=== PATIENT | female | born 1980 | race Caucasian/White ===

== ENCOUNTER 2024-10-31 02:10 | Day surgery (SDC) | payer OTHER, SELFPAY ==
[2024-10-18 16:16] VITALS: BMI 24.7
--- NOTE | 2024-10-18 16:39 | PC.NURSE ---
Report to the Outpatient Waiting Room, entrance under the green pavilion located off [facility], at 1000 on 10-31-24. Planned Procedure Time: 1200.? Time changes happen often and if your time is changed the preop area will call you the afternoon before. - You and your visitor will be asked to self-screen and do not enter if you have any COVID symptoms. Please call surgeon if you need to reschedule. - A mask is optional within the hospital at this time. Patients may have clear liquids (water, carbonated beverages, clear teas, apple juice) until 3 hours prior to surgery with a maximum of 20 ounces. 0900 - No food from midnight until time of surgery and no smoking. This includes no chewing gum, candy or mints. - Infants may have breast milk until 4 hours before surgery, infant formula 6 hours prior to surgery. - Children will be allowed to drink immediately following surgery.? If applicable, please bring a bottle or sippy cup to assist with drinking. Juice, water, soda, and popsicles are readily available.? For infants on formula, please bring formula the day of surgery.?Pacifiers are allowed. Take only the following medications with a SIP of water on the morning of surgery: NONE DO NOT STOP ANY OF YOUR OTHER PRESCRIPTION MEDICATIONS PRIOR TO SURGERY EXCEPT THE FOLLOWING Medications to discontinue per physician: N/A Please no make-up, nail japanese, hairspray, perfume, deodorant, or body powder the day of surgery.? No jewelry (including any body piercings) or valuables the day of surgery, leave them at home.? Please take a shower or bath the night before, or the morning of, surgery with an antibacterial soap.? Wear comfortable, loose fitting clothing.? Children are encouraged to wear pajamas. - Jewelry must be removed prior to entering the operating room.? Rings and piercings that are not removed may be cut off. - The hospital will not accept responsibility for valuables.? - Please leave all valuables, including medications, at home the day of surgery. If you are going home after surgery, a licensed subway train driver must drive you home.? - NO public transportation without another adult if you receive anesthesia. - We recommend that an adult stay with you for 24 hours following discharge. - We also recommend that you do not drive, make important decision, drink alcoholic beverages, or take any drugs that were not prescribed by your health care provider for at least 24 hours after your discharge time. For Pediatric surgeries, we recommend two adults accompany the child home. Follow any additional instructions given to you from your surgeon. Telephone instructions given to Tina Gallego and asked if any additional questions and then verbalized understanding. Patient advised to call surgeon office or pre surgery nurse liaison [phone] if any additional questions.
--- NOTE | 2024-10-30 07:48 | PM.IMHP ---
H&P: HPI History of Present Illness Date/Time: 10/30/24 07:48 Chief Complaint: excessive bleeding Narrative: 43-year-old female admitted for hysteroscopy dilatation curettage and Ethel ablation. She has excessive heavy bleeding this was been refractory to medical therapy risks and benefits reviewed including not exclusive of , aspiration bleeding, transfusion, perforation injury to bowel, bladder, ureters, or other internal organs with need for open laparotomy. She received the ACOG handouts entitled hysteroscopy and dilatation curettage respectively. She received the Ethel handout. She had all questions answered. She asked to proceed. [facility] Social History Social History Smoking status: Never smoker Second hand tobacco smoke exposure: No Alcohol intake: never Substance use: never Substance use type: does not use Living arrangements: with family Spiritual care concerns: No Meds Home Medications and Allergies Home Medications Medication Instructions Recorded Confirmed Type No Home Medications 10/18/24 10/18/24 History Allergies Allergy/AdvReac Type Severity Reaction Status Date / Time Cephalosporins Allergy Mild Nausea and Verified 10/18/24 16:14 Vomiting Exam Const: General: cooperative, healthy appearing and comfortable Nutritional Appearance: average body habitus Orientation/consciousness: oriented to person, oriented to place and oriented to time HENMT: Head: normal to inspection Resp: Effort & Inspection: normal respiratory effort Cardio: Rate: regular rate Rhythm: regular rhythm Heart sounds: S1 normal heart sound present and S2 normal heart sound present GI: Inspection: normal to inspection : External Female Exam: normal external appearance Speculum Exam - Vagina: normal appearance of the vagina Speculum Exam - Cervix: normal appearance of the cervix Bimanual exam- vagina & uterus: enlarged Bimanual Exam- Adnexa, other: normal adnexae Assessment and Plan Assessment and plan (1) Excessive bleeding: Code(s): R58 - Hemorrhage, not elsewhere classified Status: Acute Assessment and Plan: proceed with hysteroscopy / dilatation curettage/Ethel ablation
--- NOTE | 2024-10-30 16:07 | P.PNAN_ITS ---
Anes - Eval Pre Procedure Procedure: Operation Date: 10/31/24 09:30 Proposed Procedures p Hysteroscopy Dilation and Curettage, Ethel Endometrial Ablation - Zeb Watkins MD Date/Time: 10/30/24 16:07 Pre Op Diagnosis: Irrg Bleeding, Pain Patient Data Age: 43 Gender: F Height: 1.57 m Weight: 61.24 kg Allergies Allergy/AdvReac Type Severity Reaction Status Date / Time Cephalosporins Allergy Mild Nausea and Verified 10/18/24 16:14 Vomiting Home Medications Medication Instructions Recorded Confirmed Type No Home Medications 10/18/24 10/18/24 History Patient hx anesthesia problems: none Family hx anesthesia problems: none Results Review: All pre-operative results and documents have been reviewed as part of the pre- operative evaluation. [facility] Social History Social History Smoking status: Never smoker Second hand tobacco smoke exposure: No Alcohol intake: never Substance use: never Substance use type: does not use Living arrangements: with family Spiritual care concerns: No Exam Day of Procedure 10/30/24 16:07 Patient weight: normal
--- NOTE | 2024-10-31 06:28 | WPDHPUPDATE1 ---
History and Physical Update Update Date/Time: 10/31/24 06:28 History and Physical has been reviewed, including an updated exam of the patient. There are NO changes in the patient's condition. Risks, benefits, and alternatives have been discussed and questions answered. Patient agrees to proceed with procedure.
[2024-10-31 08:00] VITALS: BP 115/77; PULSE 84; RESP 16; TEMP 36.9; O2SAT 100; BMI 23.9
[2024-10-31] MEDS: LACTATED RINGERS 1,000 ML 30 ML IV CONT (08:00)
[2024-10-31] MEDS: ACETAMINOPHEN 500 MG TABLET 1000 MG PO (08:35)
--- NOTE | 2024-10-31 08:40 | P.PNAN_ITS ---
Anes - Initial Pre Proc Eval Procedure: Operation Date: 10/31/24 09:30 Proposed Procedures p Hysteroscopy Dilation and Curettage, Ethel Endometrial Ablation - Zeb Watkins MD Date/Time: 10/31/24 08:40 Surgeon: Zeb Watkins MD Pre Op Diagnosis: Irrg Bleeding, Pain Patient Data Age: 43 Gender: F Height: 1.57 m Weight: 61.24 kg Allergies Allergy/AdvReac Type Severity Reaction Status Date / Time Cephalosporins Allergy Mild Nausea and Verified 10/18/24 16:14 Vomiting Home Medications Medication Instructions Recorded Confirmed Type hydrocodone 5 mg-acetaminophen 325 1 tablet PO Q4H PRN pain #20 tabs 10/31/24 Rx mg tablet Patient hx anesthesia problems: none Family hx anesthesia problems: none Results Review: All pre-operative results and documents have been reviewed as part of the pre- operative evaluation. [facility] Social History Social History Smoking status: Never smoker Second hand tobacco smoke exposure: No Alcohol intake: never Substance use: never Substance use type: does not use Living arrangements: with family Spiritual care concerns: No Anes - Eval Final PreProcedure Day of Procedure 10/31/24 08:40 Patient weight: normal Heart: regular rate and rhythm Lungs: clear to auscultation Airway: Mallampati scale class II Neurological: alert and oriented Last oral intake: >/= 8 hours ASA classification: II Emergent: no Anesthetic plan: proceed Anesthesia type and monitoring: general GIVS and standard monitoring Results Review: All pre-operative results and documents have been reviewed as part of the pre- operative evaluation. Informed Consent: The patient's anesthetic plan and its attendant risks and benefits were discussed with the patient/family/POA. Questions were solicited and answers provided to the satisfaction of the patient/family/POA.
[2024-10-31] MEDS: ceFAZolin 1 GM/NS 50 ML 1 GM/50 ML BAG IVPB (08:52)
[2024-10-31] MEDS: LIDOCAINE HCL 1% LOCAL INJ 20 ML VIAL 10 ML INFILTRATE (09:03)
[2024-10-31 09:27] VITALS: BP 114/77; PULSE 76; RESP 14; O2SAT 98
--- NOTE | 2024-10-31 09:27 | P.OP_ITS ---
Procedure Note - Detailed Date of Procedure 10/31/24 Pre-op Diagnosis Irrg Bleeding, Pain Post-op Diagnosis Other (Irregular bleeding uterine polyp) Procedure Performed hysteroscopy/ dilatation/polypectomy/ endometrial ablation Surgeon Zeb Watkins MD Anesthesia MAC and Local Indications 43 year female with excessive bleeding Findings . Small uterine polyp. Description of Procedure The patient was prepped and draped the sterile placed in dorsal position. Excellent sedation placed posterior fornix of. Anterior lip cervix a single- tooth 2.5cc anesthesia placed at 2:10 a.m. cervix. Uterus sounded to 8cm. Serial dilatation fragmented performed followed passes the 5 visualizing hysteroscope saline visualizing medium. Small polyp was seen in reticulating device was placed in uterus and polyp was its entirety piecemeal. The uterus was then scraped over the entire 360? until good grating sound was heard. The instruments withdrawn and the Ethel instrument was placed in the uterus at the appropriate depth. Was burned for 120seconds. This was removed in the instruments were withdrawn the patient went to recovery in satisfactory condition. Blood loss was estimated 5cc. All sponge, needle, instrument counts were correct. There were no immediate complication was Estimated Blood Loss 5 Drains No Packing No Pathology Yes Complications No immediate complications Condition Stable Disposition PACU
[2024-10-31 09:45] VITALS: BP 113/69; PULSE 72; RESP 14; O2SAT 100
[2024-10-31 10:12] VITALS: BP 110/75; PULSE 74; RESP 14; O2SAT 100
[2024-10-31] MEDS: IBUPROFEN 400 MG TABLET PO (10:27)
[2024-10-31 10:40] VITALS: BP 108/91; PULSE 76; RESP 14
[2024-10-31 11:48] LABS: BEDSIDEPREGUCG Negative (Negative)
== END 2024-10-31 10:45 | disposition home or self-care (01) ==
PROVIDERS: Visit Provider Obstetrics & Gynecology
PROC: 0U5B8ZZ Destruction of Endometrium, Via Natural or Artificial Opening Endoscopic (ICD-10-PCS; CPT 58563; principal; 2024-10-31 09:30)
DX: N93.9 Abnormal uterine and vaginal bleeding, unspecified (principal); N84.0 Polyp of corpus uteri
CPT/HCPCS: 58563; 88305; A9270; J0690; J1100; J2003; J2250; J2405; J2704; J3010; J7120

== ENCOUNTER 2025-09-24 18:02 | Outpatient (CLI) | payer OTHER, SELFPAY ==
--- NOTE | ~2025-09-24 | XR_ITS ---
Examination: XR shoulder RT min 2V Clinical History: PAIN Comparison: None Technique: 4 views right shoulder Findings/impression: 1. No fracture or dislocation right shoulder. 2. No degenerative changes. Reviewed, dictated and finalized at location R.
--- NOTE | ~2025-09-24 | XR_ITS ---
Clinical History: PAIN Examination: [id number]_CR Comparison: 12/03/2014 Technique: 4 views cervical spine Findings: No acute fracture or listhesis. Vertebral bodies normal height and alignment. Prevertebral soft tissues within normal limits. Disc spaces maintained. No significant degenerative changes. Impression: 1. No acute fracture or listhesis cervical spine. Reviewed, dictated and finalized at location R. Impression: 1. No acute fracture or listhesis cervical spine.
--- NOTE | ~2025-09-24 | XR_ITS ---
Lumbar spine series Indication: Pain Comparison: None Technique: 3 views lumbar spine Findings: 5 nonrib-bearing lumbar-type vertebral bodies. No acute fracture. No listhesis. Vertebral bodies normal height. Disc spaces maintained. No significant degenerative changes. SI joints congruent. Sacrum intact. IMPRESSION: 1. No acute findings. Reviewed, dictated and finalized at location R. IMPRESSION: 1. No acute findings.
--- OUTSIDE RECORDS SUMMARY | 2025-09-24 18:16 | XMS_ITS | Clinical Summary ---
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 Gender Identity Not on file Sexual Orientation Not on file Plan of Treatment Health Maintenance Due Date Last Done Comments Cervical Cancer Screening Pa p Smear (Age 30 to 64) Every 3 Years 1979 Colorectal Cancer Screening Colonoscopy (10 Years) 1979 Annual Physical 1982 Hepatitis C 1997 DTaP, Tdap and Td Vaccines ( 1 - Tdap) 1998 Hepatitis B Vaccines (1 of 3 - 19+ 3-dose series) 1998 HPV Vaccines (1 - 3-dose SCD M series) 2006 Cervical Cancer Screening Pa p with HPV Testing (Age 30 to 64) Every 5 Years 2009 Cervical Cancer Screening with HPV 2009 COVID-19 Vaccine ( - 2024-2 6 season) 2025 Influenza Adult (#1) 2025 Mammogram Screening 03/05/2027 03/05/2025 Hepatitis A Vaccines Aged Out No long er eligible based on patient's age to complete this topic Meningococcal B Vaccine Aged Out No l onger eligible based on patient's age to complete this topic Meningococcal Vaccine Aged Out No bart giovanna eligible based on patient's age to complete this topic Pneumococcal Vaccine: Pediat rics (0 to 5 Years) and At-Risk Patients (6 to 49 Years) Aged Out No longer eligi ble based on patient's age to complete this topic RSV Immunizations Under 20 Months Aged Out No longer eligible based on patient's age to complete this topic Procedures Procedure Name Priority Date/Time Associated Diagnosis Comments MG SCREENING W YON RAMA DIGI Routine 03/05/2025 12:49 PM CDT Visit for screening mammogram from Last 3 Months or Most Recently Relevant to Health Maintenance Results * MG SCREENING W YON RAMA DIGI (03/05/2025 12:49 PM CDT) Anatomical Region Laterality Modality Breast Bilateral Mammography 03/05/2025 3:19 PM CDT Impressions 03/05/2025 3:20 PM CDT IMPRESSION: Dense breasts decreases mammographic sensitivity. However no features to suggest malignancy. In the absence of clinical symptoms, return for annual screening mammogram due in 1 year. RECOMMENDATION: Routine Screening, Bilateral Mammogram in 1 year FDA statement for Dense Breasts: Breast tissue can be either dense or not dense. Dense tissue makes it harder to find breast cancer on a mammogram and also raises the risk of developing breast cancer. Your breast tissue is dense. In some people with dense tissue, other imaging tests in addition to a mammogram may help find cancers. Talk to your healthcare provider about breast density, risks for breast cancer, and your individual situation. ASSESSMENT: ACR BI-RADS 2 - BENIGN FINDING(S) Dense breast tissue. See [place] [employer] guidelines for extra screening. https://www.cancer.org/cancer/types/breast-cancer/jtunbaibo-hvufn-msg-early-dete ction /zkhwko-diz-ljpnr.html If she is deemed a high risk patient (20% or greater lifetime risk of breast cancer), supplemental screening by MRI breast with/without IV gadolinium contrast is available in our Radiology Department. Determine patient's lifetime risk using online tools, such as: https://bcrisktool.cancer.gov/ https://Stalkthis.com/jkkg-cbdy-swlhkbymgy/ Ordered By: DONI KC Interpreted By: Geoff Holt MD, 03/05/2025 3:19 PM Narrative 03/05/2025 3:[address] PM [address] [place] [address] EXAMINATION: BILATERAL SCREENING MAMMOGRAPHY Exam Date: 03/05/2025 12:28 PM CLINICAL INDICATION: 44 years of age female routine screening. This is the baseline study. TECHNIQUE: Digital XCCL, CC & MLO views. Tomosynthesis imaging acquisition Study read with the assistance of a computer-aided detection system. TISSUE DENSITY: The breasts are heterogeneously dense, which may obscure small masses. FINDINGS: No suspicious grouping of microcalcifications, distortion, or suspicious nodule 3 dimensionally demonstrated in either breast. Dense tissue pattern. us Doni Kc MD MAMMO Final Resul t from Last 3 Months or Most Recently Relevant to Health Maintenance Insurance [employer] [place] [id number] Care Teams Unionmelt Operator Relationship Specialty Start Date End Date Doni Kc MD [address] [place] [id number] PCP - General FAMILY PRACTICE 02/27/25
--- OUTSIDE RECORDS SUMMARY | 2025-09-24 18:16 | XMS_ITS | Encounter Summary ---
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
== END 2025-09-24 18:03 | disposition home or self-care (01) ==
PROVIDERS: PCP Family Medicine; Visit Provider Family Medicine
DX: S13.4XXA Sprain of ligaments of cervical spine, initial encounter (principal); S46.811A Strain of other muscles, fascia and tendons at shoulder and upper arm level, right arm, initial encounter; M54.50 Low back pain, unspecified
CPT/HCPCS: 72040; 72100; 73030